=== PATIENT | male | born 1995 | race Caucasian/White ===

== ENCOUNTER 2021-08-05 14:20 | Emergency (ER) | payer SELFPAY ==
[~2021-08-05] VITALS: Ht 182.9 cm; Wt 68.0 kg
--- NOTE | 2021-08-05 14:20 | NUR ---
PT BIB SELF C/O PENILE SWELLING STARTED 1 AND 1/2 HR AGO [employer]. PT IS AAOX4, NOT IN RESPIRATORY DISTRESS, V/S STABLE, KEPT RESTED AND COMFORTABLE. WILL CONTINUE TO MONITOR.
--- NOTE | 2021-08-05 14:28 | NUR ---
SEEN AND EXAMINED BY .
[2021-08-05] MEDS ORDERED: oxyCODONE/APAP (5/325 MG) 1 UDTAB TABLET PO ONE (14:30)
[2021-08-05] MEDS ORDERED: MORPHINE SULFATE INJ 2 MG/ML DISP.SYRIN IV ONE (14:30)
[2021-08-05] MEDS ORDERED: MORPHINE SULFATE INJ 4 MG/ML DISP.SYRIN ONE (14:31)
[2021-08-05] MEDS ORDERED: ONDANSETRON HCL/PF 4 MG/2 ML VIAL ONE (14:31)
--- NOTE | 2021-08-05 14:35 | NUR ---
IV LINE ESTABLISHED BLOOD DRAWN AND SENT TO LAB.
[2021-08-05] MEDS ORDERED: ONDANSETRON HCL/PF 4 MG/2 ML VIAL IV ONE (15:00)
[2021-08-05] MEDS ORDERED: FLUCONAZOLE (100 MG) 100 MG TABLET PO ONE (15:00)
[2021-08-05] MEDS ORDERED: FLUCONAZOLE (100 MG) 100 MG TABLET ONE (15:03)
[2021-08-05 15:10] VITALS: BP 127/82
--- NOTE | 2021-08-05 15:10 | NUR ---
IV removed. Catheter intact and site benign. Pressure and 4x4 applied to site. No bleeding noted. Patient discharged to home in stable condition. Written and verbal after care instructions given. Patient verbalizes understanding of instruction.
== END 2021-08-05 15:12 | disposition home or self-care (01) ==
LOC: ER 14:22
DX: N47.2 Paraphimosis (principal); N47.6 Balanoposthitis
CPT/HCPCS: 96374; 96375; 99291; J2270; J2405